=== PATIENT | male | born 1955 | race Caucasian/White ===

== ENCOUNTER 2018-04-18 09:24 | Day surgery (SDC) | payer OTHER ==
[2018-04-18] MEDS ORDERED: ATROPINE SULFATE 1 MG/10 ML SYR IVP ONE (09:29)
[2018-04-18] MEDS ORDERED: NS 500 ML IV ONE (09:29)
--- NOTE | 2018-04-18 09:39 | CPEKG ---
Heart Rate: 118 RR Interval: 508 QRSD Interval: 104 QT Interval: 348 QTC Interval: 488 QRS [place]: 88 T Wave [place]: 95 EKG Severity - ABNORMAL ECG - EKG Impression: A-FLUTTER /atrial tachycardia with 2-1 conduction to the ventricles Electronically Signed By: Eric Hernandez 18-Apr-2018 12:38:33
[2018-04-18] MEDS ORDERED: PROPOFOL 200 MG/20 ML VIAL ONE ×2 (10:23)
[2018-04-18 10:26] LABS: INR 1.06 (0.83-1.16)
--- NOTE | 2018-04-18 11:10 | PDGENHP ---
History & Physical Chief Complaint: palpitations History of Present Illness: HR 95-128 bpm, called me over weekend, started on eliquis Relevant Physical Exam: s1s2 rrr. cta. ao3 Cardiorespiratory Assessment: for krissy + cv for AT (left AT vs AFL, post maze). d.w. him and need for OAC for atleast 6 weeks (will give him additional 6 weeks in case he has AT while in [place] for him to take with him). risks of krissy , cv d.w. him and his . [facility]cc may need antiarrhythmics vs ablation in case he has recurrence.
--- NOTE | 2018-04-18 11:14 | PDANEPAE ---
ANE History of Present Illness LIZ, synchronized CV ANE Past Medical History - Cardiovascular History Hx Hypertension: Yes Hx Arrhythmias: Yes Hx Coronary Artery / Peripheral Vascular Disease: Yes Cardiovascular History Comment: HTN, hx of a. fib., CAD s/p CABG - Pulmonary History Hx COPD: No Hx Oxygen in Use at Home: No Hx Sleep Apnea: Yes - Neurologic History Hx Cerebrovascular Accident: No Hx Seizures: No - Endocrine History Hx Diabetes: No Hypothyroid: No Hyperthyroid: No Obesity: moderate - Renal History Hx Renal Disorders: No - Surgical History Prior Surgeries: s/p CABG ANE Review of Systems Review of Systems: ANE Patient History - Allergies Allergies/Adverse Reactions: No Known Allergies Allergy (Unverified 02/13/10 11:59) - Home Medications Home Medications: Carvedilol 04/18/18 [Last Taken Unknown] Eliquis 04/18/18 [Last Taken 04/18/18 07:15] Hydrochlorothiazide 04/18/18 [Last Taken 04/17/18 07:00] Ramipril 04/18/18 [Last Taken Unknown] - Anes Hx Anes Hx: no prior problems - Smoking Hx Smoking Status: Never smoked Marijuana use: No - Alcohol Use Alcohol Use: Other (1 drink/day) - Family Anes Hx Family Anes Hx: none ANE Labs/Vital Signs - Labs Result Diagrams: 04/18/18 09:50 - Vital Signs Height: 193.04 cm Weight: 108.409 kg ANE Physical Exam - Airway Neck exam: FROM Mallampati Score: Class 2 Mouth exam: normal dental/mouth exam - Pulmonary Pulmonary: clear to auscultation - Cardiovascular Cardiovascular: tachycardia ANE Anesthesia Plan Anesthesia Plan: GA with mask
--- NOTE | 2018-04-18 11:58 | PDTEE1 ---
LIZ Cardioversion Procedure Procedure: electrical cardioversion, transesophageal echo Indications: other (Atrial tachycardia, status post Maze procedure) Consent: signed and in chart Anticoagulation: eliquis Procedural Details: Pads were placed in anterior-posterior position. LIZ probe was advanced and standard images obtained. There is no evidence of left atrial or left atrial appendage thrombus. Synchronized cardioversion attempt #1: 100J Results: normal sinus rhythm Conclusions: successful LIZ cardioversion (Patient and have been instructed that patient is to take Eliquis for 6 weeks, 5 mg twice daily. If there is recurrence of atrial tachycardia, options are either long-term antiarrhythmic drug therapy with sotalol versus an ablation procedure. He will also make a follow-up appointment to see me prior to his visit to [place].) Patient Problems: Problems Problem Status Onset Atrial tachycardia Acute
--- NOTE | 2018-04-18 12:01 | CPEKG ---
Heart Rate: 76 RR Interval: 789 P-R Interval: 148 QRSD Interval: 98 QT Interval: 400 QTC Interval: 450 P [place]: 95 QRS [place]: 81 T Wave [place]: 88 EKG Severity - OTHERWISE NORMAL ECG - EKG Impression: SINUS RHYTHM EKG Impression: BORDERLINE RIGHT AXIS DEVIATION EKG Impression: compared to previous EKG, patient is now in normal sinus rhythm Electronically Signed By: Eric Hernandez 18-Apr-2018 12:38:01
--- NOTE | 2018-04-19 16:12 | POSTANESTH ---
Post Anesthetic Evaluation Cardiovascular Status: Similar to Pre-Op Cond Respiratory Status: Normal, Stable Level of Consciousness/Mental Status: Can Participate in Eval Pain Control: Adequate, Prn Tx Ordered Nausea/Vomiting Control: Adequate, Prn Tx Ordered Complications Possibly Related to Anesthesia: None Noted
--- NOTE | 2018-04-28 17:07 | ECHO ---
[email or web address] [place] [id number] Main: [phone] Fax: Transesophageal Echocardiography Name: JONH ZAPATA MR#: [id number] Study Date: 04/18/2018 Study Time: 11:07 AM Date of : 1955 Age: 62 year(s) Height: ( ) Weight: ( ) BSA: Gender: Male Examination: LIZ Indication: Atrial Flutter Image Quality: Contrast: Requested by: Eric Hernandez Heart Rate: Rhythm: BP: 144 mmHg/112 mmHg Procedure Staff Practice Manager: Luann Sauer RDCS Reading Physician: Eric Hernandez MD Requesting Provider: LIZ Exam Details Measurements: Chambers Valvular Assessment AV/MV Valvular Assessment TV/PV Normal Normal Normal Name Value Range Name Value Range Name Value Range EF Range: 45-50 % Additional Measurements: Findings: The ejection fraction is estimated to be 45-50 %. Left Atrium: An agitated saline study was performed and was negative for intracardiac shunting. Left Atrial Appendage: NESTOR has been ligated.. Mitral Valve: Trivial mitral valve regurgitation. A bioprosthetic mitral valve is in place.. Aortic Valve: The aortic valve is tri-leaflet. There is no aortic valve regurgitation. l1n (No Signature Object) Patient: JOHN ZAPATA Study Date: 04/18/2018 Page 1 of 2 11:07 AM Patient: JOHN ZAPATA Study Date: 04/18/2018 Page 2 of 2 11:07 AM [id number]
== END 2018-04-18 12:44 | disposition home or self-care (01) ==
LOC: FCATH 09:24
PROVIDERS: ATTEND Internal Medicine Cardiovascular Disease
PROC: B245ZZ4 Ultrasonography of Left Heart, Transesophageal (ICD-10-PCS; principal; 2018-04-18)
PROC: 5A2204Z Restoration of Cardiac Rhythm, Single (ICD-10-PCS; principal; 2018-04-18)
DX: I47.1 Supraventricular tachycardia (principal); I10 Essential (primary) hypertension; Z95.1 Presence of aortocoronary bypass graft; G47.30 Sleep apnea, unspecified
CPT/HCPCS: J2704

== ENCOUNTER → 2018-05-20 | Outpatient (CLI) | payer OTHER ==
[~2018-05-20] MED LIST: IOPAMIDOL (ISOVUE 370) 100 ML BTL IV ONE
== END ==
LOC: FIMAGING 14:16
PROVIDERS: ATTEND Internal Medicine Cardiovascular Disease
DX: I47.1 Supraventricular tachycardia (principal); Q26.8 Other congenital malformations of great veins; Z95.2 Presence of prosthetic heart valve
CPT/HCPCS: Q9967